=== PATIENT | female | born 1950 | race American Indian/Alaskan Native ===

== ENCOUNTER 2018-08-12 21:45 | Emergency (ER) | payer MEDICARE, OTHER ==
[2018-08-12 21:46] VITALS: BMI 53.8
[2018-08-12 21:50] VITALS: TEMP 99.5
[2018-08-12 22:57] LABS: BASO % 0.3 % (0.0-2.0); EOS # 0.2 K/uL (0.0-0.7); EOS % 1.7 % (0.0-4.0); HEMOGLOBIN 8.3 g/dL (12.0-16.0); LYMPH # 1.3 K/uL (1.0-4.3); LYMPH % 11.8 % (20.0-40.0); MEAN CELL VOLUME 74.7 fl (81.0-99.0); MEAN CORPUSCULAR HEMOGLOBIN 22.5 pg (27.0-31.0); MEAN CORPUSCULAR HGB CONC 30.2 g/dL (33.0-37.0); MEAN PLATELET VOLUME 8.8 fl (7.2-11.7); MONO # 0.8 K/uL (0.0-0.8); MONO % 7.3 % (0.0-10.0); NEUT # 8.8 K/uL (1.8-7.0); NEUT % 78.9 % (50.0-75.0); NRBC % 0.1 % (0.0-0.0); RBC 3.7 Mil/uL (3.80-5.20); RED CELL DISTRIBUTION WIDTH 25.4 % (11.5-14.5); WHITE BLOOD COUNT 11.2 K/uL (4.8-10.8)
[2018-08-12 23:16] LABS: BLOOD UREA NITROGEN 11 mg/dl (7-17); GFR NON-AFRICAN AMERICAN > 60
--- NOTE | 2018-08-12 23:23 | ED PDOC ---
HPI: Female Pain Time Seen by Provider: 08/12/18 21:56 Chief Complaint (Nursing): Female Genitourinary Chief Complaint (Provider): Female Genitourinary History Per: Patient History/Exam Limitations: no limitations Onset/Duration Of Symptoms: Hrs ([employer]) Additional Complaint(s): 68 y/o female with history of HTN, super morbid obesity, diabetes, and CHF was referred to the ED by [facility] for vaginal bleeding. On arrival to the ED patient states that she doesn't think she is bleeding currently. She denies any lightheadedness, dizziness, or trauma. Past Medical History Reviewed: Historical Data, Nursing Documentation, Vital Signs Vital Signs: Last Vital Signs Temp 99.5 F 08/12/18 21:47 Pulse 100 H 08/12/18 21:47 Resp 16 08/12/18 21:47 BP 144/71 08/12/18 21:47 Pulse Ox 100 08/12/18 21:47 - Medical History PMH: Anemia, Arthritis (hands and back), Asthma, CHF, HTN, Hypercholesterolemia, Osteoporosis, Peripheral Edema (ble +1 pitting) Denies: Chronic Kidney Disease - Family History Family History: States: Unknown Family Hx - Immunization History Hx Tetanus Toxoid Vaccination: No Hx Influenza Vaccination: No Hx Pneumococcal Vaccination: No - Home Medications Home Medications: Ambulatory Orders Medication Instructions Recorded Albuterol Sulfate [Proair Hfa] 1 puff INH Q6 12/28/17 Alendronate Sodium [Binosto] 70 mg PO SUN 12/28/17 Carvedilol [Coreg] 3.125 mg PO DAILY 12/28/17 Iron Aspgly,Ps/C/Succinic Acid 1 cap PO DAILY 12/28/17 [Ferrex 150 Plus Capsule] Oxybutynin XL [Ditropan XL] 5 mg PO DAILY 12/28/17 Pioglitazone [Actos] 45 mg PO DAILY 12/28/17 Acetaminophen [Tylenol 325mg tab] 650 mg PO Q6 PRN tab 01/01/18 Aspirin [Ecotrin] 81 mg PO DAILY tabec 01/01/18 Docusate [Colace] 100 mg PO TID cap 01/01/18 Enoxaparin [Lovenox] 40 mg SC DAILY syr 01/01/18 Fluticasone Propionate [Flovent 220 mcg IH BID 01/01/18 Hfa] Acetaminophen [Tylenol 650 mg Supp] 650 mg RC Q6H PRN sup 01/07/18 Allopurinol [Zyloprim] 100 mg PO DAILY #30 tab 01/07/18 Atorvastatin [Lipitor] 40 mg PO DIN #30 tab 01/07/18 Dexlansoprazole [Dexilant] 60 mg PO DAILY #30 cap.bp 01/07/18 Ergocalciferol [Drisdol 50,000 1 cap PO Q7D #7 cap 01/07/18 Intl Units Cap] Furosemide [Lasix] 40 mg PO BID #30 tab 01/07/18 Levalbuterol [Xopenex] 0.63 mg IH [id number] #30 neb 01/07/18 Linaclotide [Linzess] 145 mcg PO DAILY #30 capsule 01/07/18 Losartan [Cozaar] 100 mg PO DAILY #0 tab 01/07/18 Lubiprostone [Amitiza] 24 mcg PO DAILY #30 capsule 01/07/18 Magnesium Oxide [Mag-Ox] 400 mg PO Q8H #30 tab 01/07/18 Potassium Chloride [K-Dur 20 mEq 20 meq PO DAILY #14 tab 01/07/18 ER Tab] Insulin Detemir [Levemir] 50 unit SC HS #3 unit 01/09/18 - Allergies Allergies/Adverse Reactions: Allergies Allergy/AdvReac Type Severity Reaction Status Date / Time No Known Allergies Allergy Verified 01/01/18 18:22 Review of Systems ROS Statement: Except As Marked, All Systems Reviewed And Found Negative Genitourinary Female: Positive for: Vaginal Bleeding Neurological: Negative for: Dizziness, Other (lightheadedness) Physical Exam - Reviewed Nursing Documentation Reviewed: Yes Vital Signs Reviewed: Yes - Physical Exam Appears: Positive for: Non-toxic, No Acute Distress (morbidly obese) Head Exam: Positive for: ATRAUMATIC, NORMAL INSPECTION, NORMOCEPHALIC Skin: Positive for: Normal Color, Warm, DRY Eye Exam: Positive for: EOMI, Normal appearance, PERRL Pelvic Exam: Positive for: No Cerv. 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 Negative for: Active Bleeding, Cervicitis Extremity: Positive for: Normal ROM. Negative for: Pedal Edema, Deformity Neurological/Psych: Positive for: Awake, Alert, Normal Tone. Negative for: Motor/Sensory Deficits - Laboratory Results Result Diagrams: 08/12/18 22:50 08/12/18 22:50 - ECG O2 Sat by Pulse Oximetry: 100 (RA) Pulse Ox Interpretation: Normal Medical Decision Making Medical Decision Making: Time: 22:29 A/P: Impression is post-menopausal bleeding. Concerned for possible fibroids vs uterine cancer. Will send patient for US and do blood work. BMP CBC w/ diff PTT Prothrombin US Transvaginal 23:20 Spoke with [facility] nurse who states that patient's Hemoglobin on 08/10 was 8.1 02:06 US Pelvis Findings: Uterus measures 10.7x6x7.1 cm. Endometrium is diffusely thickened measuring 18 mm. Large calcified lobulated uterus. Thickened endometrium. Nonvisualization of the ovaries. Impression: Non visualization of the ovaries. Thickened endometrium. 02:27 Rechecked vaginal exam with health care technician Desean Chapin RN - scant vaginal bleeding at this time Spoke to Dr. Singleton who recommends no acute intervention at this time. Patient can follow up was outpatient for endometrial biopsy for further workup. Seman aware of patient and will arrange for outpatient followup. Patient continues to remain well-appearing and is stable for outpatient workup. Scribe Attestation: Documented by Micheal Leal, acting as a scribe Jessica Bosch MD Provider Scribe Attestation: All medical record entries made by the Scribe were at my direction and personally dictated by me. I have reviewed the chart and agree that the record accurately reflects my personal performance of the history, physical exam, medical decision making, and the department course for this patient. I have also personally directed, reviewed, and agree with the discharge instructions and disposition Disposition - Clinical Impression Clinical Impression: Vaginal bleeding - Patient ED Disposition Is Patient to be Admitted: No - Disposition Referrals: Alexandro Singleton MD [Staff Provider] - Disposition: Routine/Home Disposition Time: 02:27 Condition: STABLE Additional Instructions: JOHN KELLEY, thank you for letting us take care of you today. Your provider was Eamon Bosch MD and you were treated for VAGINAL BLEEDING. The emergency medical care you received today was directed at your acute symptoms. If you were prescribed any medication, please fill it and take as directed. It may take several days for your symptoms to resolve. Return to the Emergency Department if your symptoms worsen, do not improve, or if you have any other problems. Please contact your doctor or call one of the physicians/clinics you have been referred to that are listed on the Patient Visit Information form that is included in your discharge packet. Bring any paperwork you were given at discharge with you along with any medications you are taking to your follow up visit. Our treatment cannot replace ongoing medical care by a primary care provider outside of the emergency department. Thank you for allowing the [facility] team to be part of your care today. If you had an X-Ray or CT scan: A Radiologist will review the ED reading if any change in treatment is needed we will contact you. If you had a blood, urine, or wound culture: It will take several days for the results, if any change in treatment is needed we will contact you. If you had an STI test: It will take 48 hours for the results. Please call after 1 week if you have not heard back. Instructions: Bleeding After Menopause Forms: [employer] (Turkish)
[2018-08-12 23:41] LABS: INR 1.3; PROTHROMBIN TIME 14.3 Seconds (9.8-13.1)
[2018-08-12 23:43] LABS: PARTIAL THROMBOPLASTIN TIME 31.9 Seconds (25.6-37.1)
[2018-08-13 05:54] VITALS: BP 140/69; PULSE 89; RESP 17; O2SAT 99
--- NOTE | 2018-08-13 11:32 | US ---
Date of service: 08/13/2018 HISTORY: Vaginal bleeding, 2 days duration. COMPARISON: None available. TECHNIQUE: Transabdominal only. Real-time technique with 2D, duplex and color Doppler FINDINGS: UTERUS: Measures 6 x 7.1 x 10.7 cm. Heterogeneous echo characteristics. No fibroid or other mass lesion seen. ENDOMETRIUM: Measures 18.5 mm in diameter. Unremarkable. CERVIX: No cervical abnormality identified. RIGHT OVARY: Not visible. LEFT OVARY: Not visible. FREE FLUID: No significant free fluid noted. OTHER FINDINGS: None. IMPRESSION: Enlarged, heterogeneous postmenopausal uterus. Endometrial thickening without focal abnormality visible on this limited/transabdominal study. Follow-up recommended based on history of postmenopausal bleeding and thickened endometrium. Nonvisualization of the adnexa bilaterally. Concordant findings (preliminary report) provided by [facility].
== END 2018-08-13 04:30 | disposition home or self-care (01) ==
LOC: H.ER 21:45
DX: N95.0 Postmenopausal bleeding (principal); E11.9 Type 2 diabetes mellitus without complications; E66.01 Morbid (severe) obesity due to excess calories; E78.00 Pure hypercholesterolemia, unspecified; I11.0 Hypertensive heart disease with heart failure; Z79.4 Long term (current) use of insulin